=== PATIENT | female | born 1940 | race Asian ===

== ENCOUNTER 2019-12-24 16:03 | Outpatient (CLI) | payer MEDICARE | END 2019-12-24 16:04 | disposition EMS.NT | LOC: EMS 16:03 | PROVIDERS: ATTEND Surgery | DX: S59.912A Unspecified injury of left forearm, initial encounter (principal); W18.30XA Fall on same level, unspecified, initial encounter; Y92.838 Other recreation area as the place of occurrence of the external cause ==

== ENCOUNTER 2019-12-24 17:23 | Emergency (ER) | payer MEDICARE ==
--- NOTE | 2019-12-24 17:43 | ED Physician Documentation ---
PD HPI UPPER EXT INJURY - Stated complaint Stated Complaint: LT ARM INJURY - Chief complaint Chief Complaint: Trauma Ext - History obtained from History obtained from: Patient - Additonal information Additional information: Trip and fall while hiking about an hour and a half ago, landed on the left arm, isolated left arm injury. Pain is moderate to severe but declines pain medication on initial evaluation. 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 - Present Medications Home Medications: Ambulatory Orders Medication Instructions Recorded Confirmed Oxycodone HCl/Acetaminophen 1 - 2 each PO Q6H PRN #30 tablet 12/24/19 [Percocet 5-325 mg Tablet] - Allergies Allergies/Adverse Reactions: Allergies Allergy/AdvReac Type Severity Reaction Status Date / Time amoxicillin Allergy Anaphylaxis Verified 12/24/19 17:33 codeine Allergy Hives Verified 12/24/19 17:33 - Social History Does the pt smoke?: No Smoking Status: Never smoker Does the pt drink ETOH?: No Does the pt have substance abuse?: No PD ED PE NORMAL - Vitals Vital signs reviewed: Yes - General General: Alert and oriented X 3, No acute distress - HEENT HEENT: PERRL, EOMI - Neck Neck: Supple, no meningeal sign, No bony TTP - Extremities Extremities: Other (She has deformities both to the distal forearm and the elbow. Unable to range it either. Normal neurovascular function in the left peres nd.) - Neuro Neuro: Alert and oriented X 3, Normal speech Results - Vitals Vitals: Vital Signs - 24 hr 12/24/19 12/24/19 17:23 19:04 Temperature 36.2 C L Heart Rate 72 72 Respiratory 18 Rate Blood Pressure 122/52 L 122/73 O2 Saturation 100 98 Oxygen O2 Source Room air - Rads (name of study) X-rays of the left wrist, elbow and forearm Radiology: EMP read contemporaneously (She has an impacted displaced and angulated distal radius fracture that is intra-articular. Also a markedly comminuted and displaced distal humerus fracture with impaction.) Procedures - Splint (location) LUE Splint applied by: Physician, Tech Type of splint: Fiberglass, Long arm Other: Patient tolerated well, No complications, Neurovascular intact PD MEDICAL DECISION MAKING - ED course ED course: 79-year-old woman with complicated left arm fracture, the Colles' fracture is fairly common, but the supracondylar fracture makes a little more complex. The on-call orthopedic surgeon, Dr. Tomlinson came in and saw the patient and looked at the x-rays. He did not feel that there was any point in attempting a closed reduction in the emergency department as it would not hold. This is all noting that the patient actually lives in [place] complicating surgery and follow-up matters. After his evaluation recommended long-arm splinting and she will make her way back to [place] for definitive repair. Departure - Departure Disposition: 01 Home, Self Care Clinical Impression: Left supracondylar humerus fracture Qualifiers: Encounter type: initial encounter Fracture type: closed Qualified Code(s): S42.412A - Displaced simple supracondylar fracture without intercondylar fracture of left humerus, initial encounter for closed fracture Fracture of left distal radius Qualifiers: Encounter type: initial encounter Fracture type: closed Fracture morphology: Colles' Qualified Code(s): S52.532A - Colles' fracture of left radius, initial encounter for closed fracture Condition: Good Record reviewed to determine appropriate education?: Yes Instructions: ED Fx Forearm Radius Ulna Redu Requ Prescriptions: Oxycodone HCl/Acetaminophen [Percocet 5-325 mg Tablet] 1 - 2 each PO Q6H PRN #30 tablet PRN Reason: pain Comments: Keep the splint on and dry, do not remove it. On return home check into [facility] to seek specialty consultation with copies of the x-rays. Do not drink or drive while taking narcotic pain medication. Note that many narcotic pain relievers also contain Tylenol/acetaminophen. Please ensure that your total dose of acetaminophen from all sources does not exceed 3 g (3000 mg) per day. You may get constipated while on this medication. Take a stool softener such as Colace twice a day while you are on it. Also add an [id number] laxative such as senna or MiraLAX on any day that you do not have a bowel movement. If you received a narcotic pain medication or sedative while in the emergency department, do not drive for the next 24 hours.
[2019-12-24] MEDS ORDERED: HYDROmorphone 1 MG/ML CARPUJECT IVP STA (18:08)
[2019-12-24] MEDS ORDERED: ONDANSETRON 4 MG/2 ML VIAL IVP STA (18:08)
--- NOTE | 2019-12-24 18:15 | XRAY Report ---
PROCEDURE: Elbow 3 View LT INDICATIONS: Trauma TECHNIQUE: 4 views of the elbow were acquired. COMPARISON: None FINDINGS: Bones: Markedly comminuted, displaced fracture of the distal humerus, with impaction. There is probab le involvement of the articular surfaces. No dislocation identified. No suspicious bony lesions. Soft tissues: Elbow joint effusion. No suspicious soft tissue calcifications. IMPRESSION: Markedly comminuted, displaced fracture of the distal humerus with impaction with probable involvemen t of the articular surface Reviewed by: Ney Madden MD on 12/24/2019 6:14 PM PDT Approved by: Ney Madden MD on 12/24/2019 6:14 PM PDT Station ID: [id number]
--- NOTE | 2019-12-24 18:16 | XRAY Report ---
PROCEDURE: Wrist 3 View LT INDICATIONS: arm inj TECHNIQUE: 3 views of the wrist were acquired. COMPARISON: None FINDINGS: Bones: Markedly comminuted, impacted, displaced, and angulated distal radius fracture involving the a rticular surface. Ulnar styloid fracture is typically involved in this fracture pattern. The ulnar st yloid is not well visualized. No suspicious bony lesions. Soft tissues: No suspicious soft tissue calcifications. IMPRESSION: Markedly comminuted, impacted, displaced, and angulated distal radius fracture involves the articular surface. Reviewed by: Ney Maddne MD on 12/24/2019 6:15 PM PDT Approved by: Ney Madden MD on 12/24/2019 6:15 PM PDT Station ID: [id number]
--- NOTE | 2019-12-24 18:17 | XRAY Report ---
PROCEDURE: Forearm LT INDICATIONS: arm inj TECHNIQUE: 2 views of the forearm were acquired. COMPARISON: Left wrist from the same date FINDINGS: Bones: Markedly comminuted, impacted, angulated, and displaced distal radius fracture extending to th e articular surface. No proximal forearm fractures. No suspicious bony lesions. Soft tissues: No suspicious soft tissue calcifications or masses. IMPRESSION: Partially comminuted, impacted, angulated, and displaced distal radius fracture extending to the brandy cular surface. Reviewed by: Ney Madden MD on 12/24/2019 6:16 PM PDT Approved by: Ney Madden MD on 12/24/2019 6:16 PM PDT Station ID: [id number]
[2019-12-24] MEDS ORDERED: ONDANSETRON ODT 4 MG TABLET TL STA (19:41)
--- NOTE | 2019-12-24 19:53 | CONSULTATION NOTE ---
Referring Provider Name of Referring Provider:: emergency room Consult Date: 12/24/19 Chief Complaint - Chief Complaint Chief Complaint: pain left elbow and left wrist following fall History of Present Illness - History Obtained From Records Reviewed: yes History obtained from: patient - History of Present Illness HPI Comment/Other: This is a relatively healthy 79-year-old woman visiting from [place], [place]. She was in [place] earlier today slipped on a wood and apparently had some loss and fell onto her left upper extremity including wrist and elbow area. She had immediate pain and deformity to wrist with painful movement of both elbow and wrist. She came to the emergency room and has been evaluated with x-rays. She denies chest pain, shortness of breath, dizziness, loss of consciousness associated with the fall. She denies any previous problems with her left elbow or wrist. She is normally active, independent in activities of daily living. She is visiting a friend who lives here on [facility]. She plans on returning home to [place] within the next few days even before the fall.She denies any numbness or tingling to her left hand or upper extremity. 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 Meds/Allgy - Home Medications Home Medications: Ambulatory Orders Medication Instructions Recorded Confirmed Oxycodone HCl/Acetaminophen 1 - 2 each PO Q6H PRN #30 tablet 12/24/19 [Percocet 5-325 mg Tablet] - Allergies Allergies/Adverse Reactions: Allergies Allergy/AdvReac Type Severity Reaction Status Date / Time amoxicillin Allergy Anaphylaxis Verified 12/24/19 17:33 codeine Allergy Hives Verified 12/24/19 17:33 Exam - Vital Signs Vital Signs: Vital Signs x48h Temp Pulse Resp BP Pulse Ox 12/24/19 19:04 72 122/73 98 12/24/19 17:23 36.2 C L 72 18 122/52 L 100 - Physical Exam General Appearance: positive: Moderate distress Eyes Bilateral: positive: Normal inspection ENT: positive: ENT inspection nml Neck: positive: Nml inspection Respiratory: positive: Chest non-tender, No respiratory distress Cardiovascular: positive: Regular rate & rhythm Peripheral Pulses: positive: 2+ Abdomen: positive: Non-tender Skin: positive: Warm, Dry Extremities: negative: Other (Left upper extremity with minimal swelling, compartment soft, neurovascular intact, deformity to wrist, limited and painful movement to both wrist and elbow left side. Left shoulder nontender. Skin intact) Neurologic/Psychiatric: positive: Oriented x3 Conclusion and Plan - Diagnostic Imaging Results Diagnostic Imaging Results: negative: Read independently (Displaced supracondylar, intercondylar fracture left distal humerus; displaced left distal radius fracture, mostly extra-articular with some articular component as well.) - Diagnosis Diagnosis: 1. Displaced supracondylar intercondylar left elbow fracture. 2. Displaced left distal radius fracture - Plan Plan: She is likely to need surgery for both her problems. [place]. She prefers to drive back to [place] with her friend and have it done at [facility] where she lives. She was given the option of having it done off [place] with transfer to [place] or elsewhere on the [facility]. She is placed in a well-padded long-arm splint with the elbow, left side placed in approximately 60 degrees of flexion to allow for swelling and the wrist in a neutral position.She had a ring on her left ring finger and this was removed as it is a potential for constriction to the finger from swelling associated with her fractures. She was in agreement to this.
[2019-12-24 20:07] VITALS: BP 117/62
== END 2019-12-24 19:50 | disposition home or self-care (01) ==
LOC: ED 17:23
DX: S42.412A Displaced simple supracondylar fracture without intercondylar fracture of left humerus, initial encounter for closed fracture (principal); S52.532A Colles' fracture of left radius, initial encounter for closed fracture; W01.0XXA Fall on same level from slipping, tripping and stumbling without subsequent striking against object, initial encounter; Y93.01 Activity, walking, marching and hiking
CPT/HCPCS: 29105; 73080; 73090; 73110; 96374; 96375; 99283; J1170; Q0162